=== PATIENT | male | born 1995 | race African-American/Black ===

== ENCOUNTER 2023-08-01 12:22 | Emergency (ER) | payer BC ==
[2023-08-01 12:58] VITALS: BP 144/85; PULSE 80; RESP 17; TEMP 99
[2023-08-01] MEDS ORDERED: AZITHROMYCIN 500 MG TAB PO STA (13:23)
[2023-08-01] MEDS ORDERED: MUPIROCIN 2% OINT 22 GM TUBE TOPICAL STA (13:23)
[2023-08-01] MEDS ORDERED: cefTRIAXone 250 MG VIAL IM STA ×2 (13:24→14:02)
--- NOTE | 2023-08-01 13:28 | ED ---
Recheck HPI - General Chief Complaint: Urogenital Stated Complaint: Screening/testing Time Seen by Provider: 08/01/23 12:45 Source: patient, RN notes reviewed, old records reviewed Mode of arrival: ambulatory Limitations: no limitations - History of Present Illness Initial Comments: This is a 27-year-old male here with multiple complaints is coming in with drainage from his penis, significant drainage for a few days now. No significant pain. Patient also states he needs an x-ray to prove he does not have active TB, tuberculosis. Patient has mild dysuria burning with urination. -: days(s) Returns Today for: needs work/school note (Patient needs work note to return to work with no TB), needs IV antibiotics Symptoms Since Prior Visit: no new symptoms Associated Symptoms: none Treatments Prior to Arrival: other (0) - Related Data Previous Rx's Medication Instructions Recorded Doxycycline Hyclate 100 mg PO BID 14 Days #28 tab 08/01/23 Allergies Allergy/AdvReac Type Severity Reaction Status Date / Time No Known Allergies Allergy Verified 08/01/23 12:41 Review of Systems ROS Statement: Those systems with pertinent positive or pertinent negative responses have been documented in the HPI. ROS Other: All systems not noted in ROS Statement are negative. Past Medical History Past Medical History: No Reported History History of Any Multi-Drug Resistant Organisms: None Reported Past Surgical History: No Surgical Hx Reported Past Psychological History: No Psychological Hx Reported Smoking Status: Never smoker Past Alcohol Use History: Rare Past Drug Use History: Marijuana General Exam Limitations: no limitations General appearance: alert, in no apparent distress Head exam: Present: atraumatic, normocephalic, normal inspection Eye exam: Present: normal appearance, PERRL, EOMI. Absent: scleral icterus, conjunctival injection, periorbital swelling ENT exam: Present: normal exam, mucous membranes moist Neck exam: Present: normal inspection. Absent: tenderness, meningismus, lymphadenopathy Respiratory exam: Present: normal lung sounds bilaterally. Absent: respiratory distress, wheezes, rales, rhonchi, stridor Cardiovascular Exam: Present: regular rate, normal rhythm, normal heart sounds. Absent: systolic murmur, diastolic murmur, rubs, gallop, clicks GI/Abdominal exam: Present: soft, normal bowel sounds. Absent: distended, tenderness, guarding, rebound, rigid exam: Present: urethral discharge Extremities exam: Present: normal inspection, full ROM, normal capillary refill. Absent: tenderness, pedal edema, joint swelling, calf tenderness Back exam: Present: normal inspection Neurological exam: Present: alert, oriented X3, CN II-XII intact Psychiatric exam: Present: normal affect, normal mood Skin exam: Present: warm, dry, intact, normal color. Absent: rash Course Vital Signs 08/01/23 12:37 Temperature 99.0 F Pulse Rate 80 Respiratory 17 Rate Blood Pressure 144/85 O2 Sat by Pulse 98 Oximetry - Reevaluation(s) Reevaluation #1: 08/01/23 Medical record is reviewed Reevaluation #2: 08/01/23 Patient symptoms unchanged Reevaluation #3: 08/01/23 Patient informed of results and questions answered Reevaluation #4: 08/01/23 13:28 Was pt. sent in by a medical professional or institution (AMOS Bae, SERVICE ORDER CLERK, urgent care, hospital, or halfway...) When possible be specific @ -no Did you speak to anyone other than the patient for history (EMS, parent, family, police, friend...)? What history was obtained from this source @ -no Did you review nursing and triage notes (agree or disagree)? Why? @ -agree Are old charts reviewed (outside hosp., previous admission, EMS record, old EKG, old radiological studies, urgent care reports/EKG's, halfway records)? Re port findings @ -yes Differential Diagnosis (chest pain, altered mental status, abdominal pain women, abdominal pain men, vaginal bleeding, weakness, fever, dyspnea, syncope, headache, dizziness, GI bleed, back pain, seizure, CVA, palpatations, mental health, musculoskeletal)? @ -prior EKG interpreted by me (3pts min.). @ -no X-rays interpreted by me (1pt min.). @ -yes CT interpreted by me (1pt min.). @ -no U/S interpreted by me (1pt. min.). @ -no What testing was considered but not performed or refused? (CT, X-rays, U/S, labs)? Why? @ -none What meds were considered but not given or refused? Why? @ -none Did you discuss the management of the patient with other professionals (professionals i.e. AMOS Bae, SERVICE ORDER CLERK, lab, RT, psych nurse, social media content manager, urologic nurse, teacher, branch lending officer, mattress spring encaser)? Give summary @ -no Was smoking cessation discussed for >3mins.? @ -no Was critical care preformed (if so, how long)? @ -no Were there social determinants of health that impacted care today? How? (Homelessness, low income, unemployed, alcoholism, drug addiction, transportation, low edu. Level, literacy, decrease access to med. care, care home, rehab)? @ -none Was there de-escalation of care discussed even if they declined (Discuss DNR or withdrawal of care, Hospice)? DNR status @ -no What co-morbidities impacted this encounter? (DM, HTN, Smoking, COPD, CAD, Cancer, CVA, ARF, Chemo, Hep., AIDS, mental health diagnosis, sleep apnea, morbid obesity)? @ -none Was patient admitted / discharged? Hospital course, mention meds given and route, prescriptions, significant lab abnormalities, going to OR and other pertinent info. @ - 27 male with penile discharge, patient does have urinary urethritis and likely STD, will be placed on antibiotics and can be discharged home Discharge Undiagnosed new problem with uncertain prognosis? @ -no Drug Therapy requiring intensive monitoring for toxicity (Heparin, Nitro, Insulin, Cardizem)? @ -no Were any procedures done? @ -no Diagnosis/symptom? @ -Urethritis, STD Acute, or Chronic, or Acute on Chronic? @ -Acute Uncomplicated (without systemic symptoms) or Complicated (systemic symptoms)? @ -Complicated Side effects of treatment? @ -no Exacerbation, Progression, or Severe Exacerbation? @ -exacerbation Poses a threat to life or bodily function? How? (Chest pain, [place], [place], pneumonia, PE, COPD, DKA, ARF, appy, cholecystitis, CVA, Diverticulitis, Homicidal, Suicidal, threat to staff... and all critical care pts) @ -no Medical Decision Making - Medical Decision Making 27 male with STD type symptoms. Patient does likely have STI will be treated for STI here in the ER can be discharged home - Lab Data Lab Results 08/01/23 08/01/23 08/01/23 Range/Units 13:38 13:38 13:38 Urine Color Light Yellow Urine Appearance Clear (Clear) Urine pH 6.5 (5.0-8.0) Ur Specific [place] 1.018 (1.001-1.035) Urine Protein Negative (Negative) Urine Glucose (UA) Negative (Negative) Urine Ketones Negative (Negative) Urine Blood Negative (Negative) Urine Nitrite Negative (Negative) Urine Bilirubin Negative (Negative) Urine Urobilinogen <2.0 (<2.0) mg/dL Ur Leukocyte Esterase Moderate H (Negative) Urine RBC 1 (0-5) /hpf Urine WBC 49 H (0-5) /hpf Urine Mucus Rare H (None) /hpf Chlamydia DNA (PCR) Negative (Negative) HIV-1 Antibody Non-Reactive (Non-Reactive) HIV Ag/Ab Interpret HIV p24 Antibody Non-Reactive (Non-Reactive) HIV-2 Antibody Non-Reactive (Non-Reactive) HIV P24 Antigen Non-Reactive (Non-Reactive) N.gonorrhoeae DNA Probe Positive A (Negative) - Radiology Data Radiology results: report reviewed (Chest x-ray is negative for acute disease), image reviewed Disposition Clinical Impression: Urethritis, Balanitis Disposition: HOME SELF-CARE Condition: Critical Prescriptions: Doxycycline Hyclate 100 mg PO BID 14 Days #28 tab Is patient prescribed a controlled substance at d/c from ED?: No Referrals: None,Stated [Primary Care Provider] - 1-2 days Time of Disposition: 14:20
--- NOTE | 2023-08-01 14:08 | XR ---
EXAMINATION TYPE: XR chest 2V DATE OF EXAM: 08/01/2023 COMPARISON: None HISTORY: 27-year-old male with cough TECHNIQUE: PA and lateral views FINDINGS: The cardiomediastinal silhouette, aorta, and pulmonary vasculature are within normal limits. Lungs an d pleural spaces are clear. IMPRESSION: No acute cardiopulmonary process.
[2023-08-01] MEDS ORDERED: cefTRIAXone IN SWFI 1,000 MG/10 ML SYRINGE IVP STA (14:09)
[2023-08-01 14:18] LABS: Appearance,Urine Clear (Clear); Bilirubin,Urine Negative (Negative); Blood,Urine Negative (Negative); Color,Urine Light Yellow; Glucose,Urine (UA) Negative (Negative); Ketones,Urine Negative (Negative); Leukocyte Esterase,Urine Moderate (Negative); Mucus,Urine Rare /hpf; Nitrite,Urine Negative (Negative); PH, Urine 6.5 (5.0-8.0); Protein,Urine Negative (Negative); RBC,Urine 1 /hpf (0-5); Specific Gravity,Urine 1.018 (1.001-1.035); Urobilinogen,Urine <2.0 mg/dL (<2.0); WBC,Urine 49 /hpf (0-5)
[2023-08-01] MEDS ORDERED: DOXYCYCLINE 100 MG CAP PO STA (14:18)
[2023-08-03 15:25] LABS: HIV 2 AB Non-Reactive (Non-Reactive); HIV AB P24 Non-Reactive (Non-Reactive); HIV P24 AG Non-Reactive (Non-Reactive)
[2023-08-04 14:19] LABS: N. gonorrhoeae,PCR Positive (Negative)
[2023-08-04 15:06] LABS: C. trachomatis,PCR Negative (Negative)
== END 2023-08-01 15:19 | disposition home or self-care (01) ==
LOC: EC 12:22
DX: N48.1 Balanitis (principal); N34.2 Other urethritis; F12.90 Cannabis use, unspecified, uncomplicated
CPT/HCPCS: 36415; 81001; 87491; 87591; 87390; 71046; 99284; 96374; J0696; 99283